=== PATIENT | male | born 1990 | race Caucasian/White ===

== ENCOUNTER 2020-01-28 17:52 | Emergency (ER) | payer OTHER, MEDICAID, SELFPAY ==
[2020-01-28 18:14] VITALS: BP 139/77; PULSE 98; RESP 14; TEMP 37.2; O2SAT 99; BMI 20.2
[2020-01-28] MEDS: CLINDAMYCIN 150 MG CAPSULE 300 MG PO (20:20)
[2020-01-28] MEDS: NEOMY/POLYM B/HC OTIC 10 ML 4 DROPS EAR-BOTH (20:21)
--- NOTE | 2020-01-28 23:31 | ED_ITS ---
HPI - Ear Problem <Dave Jorge [facility] - Last Filed: 01/29/20 00:03> General Chief complaint: Ear Stated complaint: right ear pain Time Seen by Provider: 01/28/20 19:31 Source: patient Mode of arrival: Ambulatory Limitations: no limitations History of Present Illness HPI Narrative: This is a 29-year-old male, smoker, who presents to ED with chief complain of for last 3 days. Reports that he has ear infection about every 3 years and has history of cholesteatoma surgery at age 13. With each ear infection patient requires antibiotic medication orally and ear drops which improves his symptoms and clears of infection. Patient reports that right ear started draining with thick dark fluids while he was waiting to be seen in ED today. Patient denies submerging right into water recently. Denies recent fever, chills, nausea or vomiting. Patient denies recent URI symptoms including coughing, runny nose, sore throat, cervical lymph node pain. Patient states he had taken 1 tab of extra-strength Tylenol before coming into ED which helped with discomfort. Related Data Previous Rx's Medication Instructions Recorded clindamycin HCl 300 mg PO Q8H 7 Days #21 cap 01/28/20 Allergies Allergy/AdvReac Type Severity Reaction Status Date / Time amoxicillin [From Augmentin] Allergy Verified 01/28/20 18:13 clavulanic acid Allergy Verified 01/28/20 18:13 [From Augmentin] Review of Systems <Dave Jorge DELIVERY DIRECTOR - Last Filed: 01/29/20 00:03> Review of Systems Narrative: General: Denies fever, chills, fatigue, malaise, sweats. HEENT: See HPI Respiratory: Denies dyspnea, cough, wheezing, hemoptysis, sputum. Cardiovascular: Denies chest pain, palpitations, orthopnea, edema. Gastrointestinal: Denies nausea, vomiting, abdominal pain, diarrhea, cons tipation, melena. : Denies dysuria, frequency, incontinence, hematuria, urinary retention. Musculoskeletal: Denies weakness, joint pain or bony pain. Skin: Denies rash, skin lesions, or other. Neurologic: Denies weakness, headache, numbness, change in speech, confusion, seizures, incoordination. Psychiatric: No concerning psychosocial issues. 12-point review of systems is negative except for those stated above. Patient History <ADRIAN Uribe - Last Filed: 01/29/20 00:03> Medical History Ear infection (Acute) History of cholesteatoma (Acute) Social History Smoking Status: Never smoker Smoking Status: Never smoker Exam <ADRIAN Uribe - Last Filed: 01/29/20 00:03> Narrative Exam Narrative: General appearance: well developed, well nourished, in no acute distress. Head: normocephalic, atraumatic, no scalp lesions, non-tender. ENT: Left auditory canal occluded with yellow wet ear cerumen. Right auditory canal erythema with thick dark yellow/brown drainage. Hearing grossly intact. Nose without bleeding, purulent discharge. Facial sinuses nontender to palpate. Mucous membrane moist, no mucosal lesion. Throat without erythema, tonsillar hypertrophy or exudate. Uvula in midline, airway patent. Neck/Thyroid: neck supple, full range of motion, no visible masses or meningeal signs. No JVD, non-tender without lymphadenopathy. Skin: no suspicious rashes, lesions over visible areas. Warm and dry and appropriate color for ethnicity. Heart: no clubbing, no cyanosis, no edema. S1 and S2 normal. RRR w/o murmurs, clicks, or bruits. Lungs: Breathing even and unlabored. No stridor. No accessory muscles used. Able to speak in full sentences. Chest: normal shape and expansion. Abdomen: non-obese, non-distended. Neurologic: alert and oriented. Cognitive exam, FLOOR [employer] WALL [employer] LIQUID and PNS grossly intact on informal exam. Psych: good eye contact, normal affect. Initial Vital Signs Initial Vital Signs: Vital Signs Temperature 98.9 F 01/28/20 18:14 Pulse Rate 98 H 01/28/20 18:14 Respiratory Rate 14 01/28/20 18:14 Blood Pressure 139/77 01/28/20 18:14 Pulse Oximetry 99 01/28/20 18:14 <Jovani Hood DO - Last Filed: 01/29/20 06:29> Initial Vital Signs Initial Vital Signs: Vital Signs Temperature 98.9 F 01/28/20 18:14 Pulse Rate 98 H 01/28/20 18:14 Respiratory Rate 14 01/28/20 18:14 Blood Pressure 139/77 01/28/20 18:14 Pulse Oximetry 99 01/28/20 18:14 Scores <ADRIAN Uribe - Last Filed: 01/29/20 00:03> GCS Daniel coma scale eye opening: Spontaneous Daniel coma scale verbal response: Orientated Daniel coma scale motor response: Obey commands Canon coma scale total score: 15 Course <ADRIAN Uribe - Last Filed: 01/29/20 00:03> Orders Ordered: Discontinued Medications Clindamycin HCl (Cleocin) 300 mg PO NOW ONE Stop: 01/28/20 20:08 Last Admin: 01/28/20 20:20 Dose: 300 mg Documented by: ANNIE Neomycin/Polymyxin/Hydrocortisone (Cortisporin Otic) 4 drops EAR-BOTH NOW ONE Stop: 01/28/20 20:08 Last Admin: 01/28/20 20:21 Dose: 4 drops Documented by: [email or web address] Vital Signs Vital signs: Vital Signs - 8 hr 01/28/20 18:14 Temperature 98.9 F Pulse Rate 98 H Respiratory Rate 14 Blood Pressure 139/77 Pulse Oximetry 99 <Jovani Hood DO - Last Filed: 01/29/20 06:29> Orders Ordered: Discontinued Medications Clindamycin HCl (Cleocin) 300 mg PO NOW ONE Stop: 01/28/20 20:08 Last Admin: 01/28/20 20:20 Dose: 300 mg Documented by: KBROTEM Neomycin/Polymyxin/Hydrocortisone (Cortisporin Otic) 4 drops EAR-BOTH NOW ONE Stop: 01/28/20 20:08 Last Admin: 01/28/20 20:21 Dose: 4 drops Documented by: KBROTEM Vital Signs Vital signs: Vital Signs - 8 hr 01/28/20 18:14 Temperature 98.9 F Pulse Rate 98 H Respiratory Rate 14 Blood Pressure 139/77 Pulse Oximetry 99 Medical Decision Making <ADRIAN Uribe - Last Filed: 01/29/20 00:03> Differential Diagnosis Differential Diagnosis: otitis media, otitis externa Medical Records Medical records reviewed: Yes I reviewed the patient's medical records. MDM Narrative Medical decision making narrative: This is a 29 year male who presents to with right ear pain which started 3 days ago and dark yellow light brown drainage which started now. Patient denies fever, chills, nausea or vomiting but reports he has recurring ear infections about every 3 years with history of cholesteatoma surgery in childhood. Patient in the past frequently requires oral and ear drop antibiotic medication to treat his symptoms. Patient was given 1st dose of clindamycin while in ED and discharged to home with 7 day course of 300 mg t.i.d. dose due to patient has allergy reaction to Augmentin during childhood. Patient provided with neomycin/polymyxin B and hydrocortisone otic ear drops and discharged to home. Return precautions were discussed with the patient and patient verbalized understanding in agreement with the treatment plan. Discharge Plan Departure Patient Disposition: Home Clinical Impression: Otitis media Qualifiers: Otitis media type: unspecified Chronicity: acute Qualified Code(s): H66.90 - Otitis media, unspecified, unspecified ear Otitis externa Qualifiers: Otitis externa type: unspecified type Chronicity: acute Laterality: right Qualified Code(s): H60.501 - Unspecified acute noninfective otitis externa, right ear Discharge Date/Time: 01/28/20 20:26 Instructions: DI for Otitis Externa, DI for Middle Ear Infection-Adult Activity Restrictions/Additional Instructions: You have been diagnosed with [right ear infection. You were treated with 1st dose of antibiotic medication clindamycin and ear drops while in ED. please continue with clindamycin for next 7 days 3 times a day. You can use ear drops that has been provided while in ED for next 7 days as well.]. What to do: *Take your medications as directed. You can take [id number] Tylenol and or Motrin as needed for fever or discomfort. Clindamycin has been transmitted to [facility] in [place]. *Follow up with your primary care provider in 2-3 days, call for an appointment. Let them know you were seen in the ED and that we asked you to be seen in follow up. *Return to ED if you have any new, worsening, or concerning symptoms, such as [redness/swelling/warmth spreading to her face, severe pain, fever, chest pain, breathing difficulty, or any acute concerns]. Prescriptions: New clindamycin HCl 300 mg capsule 300 mg PO Q8H 7 Days Qty: 21 RF: 0 Referrals: [facility] [Outside] <Jovani Hood DO - Last Filed: 01/29/20 06:29> Cosign ED Attending Rush Attestation: I was immediately available in the department for consultation. This documentation has been reviewed and I agree with assessment and plan. Supervised by Jovani Hood DO
== END 2020-01-28 20:26 | disposition home or self-care (01) ==
PROVIDERS: Emergency Provider Nurse Practitioner Family
DX: H66.91 Otitis media, unspecified, right ear (principal); H60.501 Unspecified acute noninfective otitis externa, right ear
CPT/HCPCS: 99283